=== PATIENT | female | born 1985 | race Two or more races ===

== ENCOUNTER 2024-09-11 14:41 | Emergency (ER) | payer OTHER, SELFPAY ==
[2024-09-11 15:02] VITALS: BP 158/106; PULSE 100; RESP 20; TEMP 36.7; O2SAT 100
--- NOTE | 2024-09-11 15:42 | PC.NURSE ---
1502 prior to triage , pt informs staff she is on the clock and can not wait to be seen. observed ambulates without difficulty/cheerful in [place]. left at this time.
== END 2024-09-11 15:02 | disposition left against medical advice (07) ==
PROVIDERS: Emergency Provider Registered Nurse
DX: Z53.21 Procedure and treatment not carried out due to patient leaving prior to being seen by health care provider (principal)
CPT/HCPCS: 99199